=== PATIENT | female | born 1985 | race Caucasian/White ===

== ENCOUNTER 2020-04-09 06:58 | Outpatient (REF) | payer OTHER, SELFPAY | END 2020-04-09 06:59 | disposition home or self-care (01) | LOC: HO.LAB 06:58 | PROVIDERS: Visit Provider Internal Medicine | DX: Z20.828 Contact with and (suspected) exposure to other viral communicable diseases (principal) | CPT/HCPCS: C9803; U0003 ==

== ENCOUNTER 2020-07-09 10:46 | Outpatient (REF) | payer OTHER, SELFPAY ==
--- NOTE | ~2020-07-09 | US_ITS ---
EXAMINATION: PELVIC ULTRASOUND CLINICAL INFORMATION: Pain COMPARISON: None TECHNIQUE: Transabdominal and transvaginal pelvic ultrasound was performed. Transvaginal exam was performed for better visualization of the uterus and ovaries. FINDINGS: The uterus is anteverted and measures 7.1 x 3.4 x 5.6 cm. There is a 1.4 x 1 x 1.4 cm hypoechoic lesion in the left uterine body suggestive of an intramural fibroid. No other focal uterine lesion is seen. Endometrial thickness is normal measuring 0.4 cm. The ovaries are normal-appearing. The right ovary measures 2.8 x 1.3 x 1.8 cm and the left ovary measures 2.1 x 1.7 x 2.2 cm. There is no fluid in the pelvis. US/US pelvic complete IMPRESSION: Small uterine fibroid otherwise unremarkable exam.
--- NOTE | ~2020-07-09 | US_ITS ---
EXAMINATION: PELVIC ULTRASOUND CLINICAL INFORMATION: Pain COMPARISON: None TECHNIQUE: Transabdominal and transvaginal pelvic ultrasound was performed. Transvaginal exam was performed for better visualization of the uterus and ovaries. FINDINGS: The uterus is anteverted and measures 7.1 x 3.4 x 5.6 cm. There is a 1.4 x 1 x 1.4 cm hypoechoic lesion in the left uterine body suggestive of an intramural fibroid. No other focal uterine lesion is seen. Endometrial thickness is normal measuring 0.4 cm. The ovaries are normal-appearing. The right ovary measures 2.8 x 1.3 x 1.8 cm and the left ovary measures 2.1 x 1.7 x 2.2 cm. There is no fluid in the pelvis. US/US transvaginal IMPRESSION: Small uterine fibroid otherwise unremarkable exam.
== END 2020-07-09 10:47 | disposition home or self-care (01) ==
LOC: HO.US 10:46
PROVIDERS: Visit Provider Emergency Medicine
DX: R10.2 Pelvic and perineal pain (principal)
CPT/HCPCS: 76830; 76856